=== PATIENT | male | born 1970 | race Caucasian/White ===

== ENCOUNTER 2017-05-09 07:56 | Emergency (ER) | payer SELFPAY ==
[2017-05-09 08:09] VITALS: BP 150/103
[2017-05-09] MEDS ORDERED: NACL 0.9% 1000 ML 1,000 ML IV ONE (08:23)
[2017-05-09] MEDS ORDERED: PEPCID IV ONE (08:23)
[2017-05-09] MEDS ORDERED: BENADRYL IV ONE (08:23)
--- NOTE | 2017-05-09 08:24 | Emergency Department Report ---
ED General Adult HPI - General Chief complaint: Allergic Reaction Stated complaint: ITCHING/ARMS/LEGS Time Seen by Provider: 05/09/17 08:17 Source: patient Mode of arrival: Ambulatory Limitations: No Limitations - History of Present Illness Initial comments: PT states he is from [place] and he is in town visiting his mother. PT states he is suffering because "something broke [him] out" PT states yesterday he ate [employer] and drank a green tea and then went outside to smoke. PT states that while he was outside, he felt something biting him. PT states he developed multiple itchy bug bites. PT states the bites slowly spread and how he has rash to entire body. PT states he did not take anything for the itching. PT states he has not taken his bp medication yet. MD Complaint: urticaria -: Gradual, days(s) Location: chest, back, abdomen, buttocks, left, right, upper extremity, lower extremity Quality: other (itchy ) Consistency: constant Improves with: other (no alleviation attemps made ) Worsens with: other (gradually ) Associated Symptoms: rash. denies: loss of appetite, malaise, nausea/vomiting Treatments Prior to Arrival: none - Related Data Previous Rx's Medication Instructions Recorded Last Taken Type Famotidine [Pepcid] 20 mg PO BID #14 tablet 05/09/17 Unknown Rx Fluticasone [Flonase] 2 spray NS QDAY #1 bottle 05/09/17 Unknown Rx hydrOXYzine PAMOATE [Vistaril] 25 mg PO Q6HR PRN #12 capsule 05/09/17 Unknown Rx methylPREDNISolone [Medrol] 4 mg PO DAILY #1 tab.ds.pk 05/09/17 Unknown Rx Allergies Allergy/AdvReac Type Severity Reaction Status Date / Time No Known Allergies Allergy Verified 05/09/17 08:04 ED Review of Systems ROS: Stated complaint: ITCHING/ARMS/LEGS Other details as noted in HPI Comment: All other systems reviewed and negative Constitutional: denies: fever, malaise ENT: denies: throat pain Respiratory: denies: cough, shortness of breath, SOB with exertion, SOB at rest Gastrointestinal: denies: nausea, vomiting Skin: rash ED Past Medical Hx - Past Medical History Hx Hypertension: Yes - Social History Smoking Status: Current Every Day Smoker Substance Use Type: Alcohol - Medications Home Medications: Home Medications Medication Instructions Recorded Confirmed Last Taken Type Famotidine [Pepcid] 20 mg PO BID #14 tablet 05/09/17 Unknown Rx Fluticasone [Flonase] 2 spray NS QDAY #1 bottle 05/09/17 Unknown Rx hydrOXYzine PAMOATE [Vistaril] 25 mg PO Q6HR PRN #12 capsule 05/09/17 Unknown Rx methylPREDNISolone [Medrol] 4 mg PO DAILY #1 tab.ds.pk 05/09/17 Unknown Rx ED Physical Exam - General Limitations: No Limitations General appearance: alert, in no apparent distress, obese - Head Head exam: Present: atraumatic, normocephalic, normal inspection - Eye Eye exam: Present: normal appearance. Absent: conjunctival injection - ENT ENT exam: Present: normal exam, normal external ear exam - Neck Neck exam: Present: normal inspection, full ROM - Respiratory Respiratory exam: Present: normal lung sounds bilaterally. Absent: respiratory distress, wheezes, rales, rhonchi, chest wall tenderness, accessory muscle use - Cardiovascular Cardiovascular Exam: Present: regular rate, normal rhythm, normal heart sounds - GI/Abdominal GI/Abdominal exam: Present: soft, other (rounded ). Absent: tenderness, guarding, rebound - Extremities Exam Extremities exam: Present: full ROM. Absent: tenderness - Back Exam Back exam: Present: full ROM, rash noted. Absent: tenderness, CVA tenderness (R ), CVA tenderness (L), muscle spasm, paraspinal tenderness, vertebral tenderness - Neurological Exam Neurological exam: Present: alert, oriented X3, normal gait - Psychiatric Psychiatric exam: Present: normal affect, normal mood - Skin Skin exam: Present: warm, dry, rash, erythema. Absent: intact (multiple areas of excoriated skin ) - Expanded Skin Exam Expanded Distribution of rash: generalized Description of rash: Present: urticarial ED Course Vital Signs 05/09/17 08:04 Temperature 97.8 F Pulse Rate 90 Respiratory 20 Rate Blood Pressure 150/103 O2 Sat by Pulse 100 Oximetry - Reevaluation(s) Reevaluation #1: 05/09/17 08:24 PT aware of plan of care. Reevaluation #2: 05/09/17 09:14 PT states the rash is fading. PT had an episode of nausea after IV placed and meds give. Treated with Zofran. PT drinking water at this time. No post oropharynx edema. no air way compromise noted. pt does have some clear post nasal drainage at this time. Reevaluation #3: 05/09/17 10:19 PT states he is feeling much better. Rash has improved. Strict return precautions reviewed with pt. pt has no questions at this time. - Pulse Oximetry Interpretation Digit-Finger Initial Pulse Oximetry Readin Actions Taken: none ED Medical Decision Making - Differential Diagnosis allergic reaction, insect bite Critical Care Time: No Critical care attestation.: If time is entered above; I have spent that time in minutes in the direct care of this critically ill patient, excluding procedure time. ED Disposition Clinical Impression: Urticaria Disposition: - TO HOME OR SELFCARE Is pt being admited?: No Does the pt Need Aspirin: No Condition: Stable Instructions: Urticaria (ED), Allergies (ED), Anaphylaxis (ED) Additional Instructions: No driving or alcohol after taking Vistaril Was the areas of broken skin at least twice a day with hypoallergenic soap and apply otc antibiotic ointment Follow up with PCP in 3-5 days Have your bp checked at follow up Return to the ED if worsening in rash, you have swelling of your throat, or you become short of breath Use hypoallergenic products/ lotions/ detergents Prescriptions: Famotidine [Pepcid] 20 mg PO BID #14 tablet Fluticasone [Flonase] 2 spray NS QDAY #1 bottle hydrOXYzine PAMOATE [Vistaril] 25 mg PO Q6HR PRN #12 capsule PRN Reason: Itching methylPREDNISolone [Medrol] 4 mg PO DAILY #1 tab.ds.pk Referrals: PRIMARY CARE, [Primary Care Provider] - 3-5 Days AMAN TOBAR MD [Staff Physician] - 3-5 Days [facility] [place] [Outside] - 3-5 Days Time of Disposition: 10:21
[2017-05-09] MEDS ORDERED: ZOFRAN IV ONE (08:54)
[2017-05-09] MEDS ORDERED: ZOFRAN ONE (08:54)
== END 2017-05-09 10:36 | disposition home or self-care (01) ==
LOC: ED 07:56
DX: L50.9 Urticaria, unspecified (principal)
CPT/HCPCS: 96361; 96374; 96375; 99282; J1200; J2405; J2930; J7030